=== PATIENT | male | born 1955 ===

== ENCOUNTER 2017-05-29 02:21 | Emergency (ER) | payer OTHER ==
[2017-05-29 02:24] VITALS: BP 172/98; PULSE 74; TEMP 98.3; BMI 27.3
--- NOTE | 2017-05-29 02:43 | PDOC ---
History of Present Illness - General Chief Complaint: Sore Throat Stated Complaint: SORE THROAT History Source: Patient - History of Present Illness Initial Comments: 05/29/17 03:08 dx'd with viral pharyngitis now complaining of whole head pain No fever/ chills + hurts when he swallows no rash Timing/Duration: 1 week Severity: moderate Modifying Factors: worse with: medication Associated Symptoms: denies: fever/chills Past History - Past Medical History Allergies/Adverse Reactions: Allergies Allergy/AdvReac Type Severity Reaction Status Date / Time No Known Drug Allergies Allergy Verified 05/29/17 02:22 shellfish derived Allergy Verified 05/29/17 02:22 Home Medications: Ambulatory Orders Oxycodone HCl/Acetaminophen [Percocet 5-325 mg Tablet] 2 tab PO Q6H PRN #8 tablet MDD 8 tabs 05/29/17 COPD: No Other medical history: DENIES - Suicide/Smoking/Psychosocial Hx Smoking History: Never smoked Review of Systems - Review of Systems All Other Systems: Reviewed and Negative *Physical Exam - Vital Signs Last Vital Signs Temp Pulse Resp BP Pulse Ox 98.3 F 74 18 172/98 100 05/29/17 02:22 05/29/17 02:22 05/29/17 02:22 05/29/17 02:22 05/29/17 02:22 - Physical Exam General Appearance: Yes: Nourished, Appropriately Dressed HEENT: positive: Normal ENT Inspection, Normal Voice, Pharynx Normal, Sinus Tenderness, Other (can fully range jaw without discomfort). negative: Pharyngeal Erythema, Tonsillar Exudate, Tonsillar Erythema, Rhinorrhea Neck: positive: Supple. negative: Lymphadenopathy (R), Lymphadenopathy (L) Respiratory/Chest: positive: Lungs Clear Cardiovascular: positive: Regular Rhythm Medical Decision Making - Medical Decision Making 05/29/17 03:10 no evidence of [employer]/ RPA no fever, no adenopathy, unremarkable pahrynx so doubt strep symptomatic mgmt *DC/Admit/Observation/Transfer Diagnosis at time of Disposition: Headache Qualifiers: Headache type: unspecified Headache chronicity pattern: acute headache Intractability: not intractable Qualified Code(s): R51 - Headache - Discharge Dispostion Disposition: HOME Condition at time of disposition: Stable - Prescriptions Prescriptions: Oxycodone HCl/Acetaminophen [Percocet 5-325 mg Tablet] 2 tab PO Q6H PRN #8 tablet MDD 8 tabs PRN Reason: Pain - Referrals - Patient Instructions Printed Discharge Instructions: DI for Viral Pharyngitis - Post Discharge Activity
== END 2017-05-29 03:07 | disposition home or self-care (01) ==
LOC: FER 02:21
DX: R51 Headache (principal); J02.9 Acute pharyngitis, unspecified; B97.89 Other viral agents as the cause of diseases classified elsewhere; Z91.013 Allergy to seafood
CPT/HCPCS: 99281-25